=== PATIENT | male | born 1985 | race Caucasian/White ===

== ENCOUNTER → 2020-03-28 17:45 | Outpatient (CLI) | payer OTHER, SELFPAY ==
--- NOTE | 2020-03-28 17:48 | DI.MRI.S_ITS ---
PROCEDURE: MR LUMBAR SPINE WO/W CON INDICATIONS: PAIN IN RIGHT LOWER LEG TECHNIQUE: Noncontrast sagittal T1 spin echo and T2 fast spin echo, sagittal STIR, axial T1 and T2 fast spin echo through the lumbar spine. In cases with scoliosis, additional coronal T2 fast spin echo may be performed. After the administration of contrast, sagittal and axial T1 spin echo with fat saturation through the lumbar spine. COMPARISON: None. FINDINGS: Image quality: Excellent. Alignment and curvature: There is normal bony alignment. Bones: Transitional anatomy with left dianne-lumbarization of the S1 vertebral body and non-rudimentary S1-2 disc noted. Marrow is of normal overall signal. No acute vertebral body compression fractures. No suspicious marrow enhancement. Spinal cord: Conus medullaris terminates at the L2 level. Visualized spinal cord demonstrates normal signal, without suspicious enhancement. Paraspinous soft tissues: No paravertebral masses or abnormal enhancement. L1-L2: Normal appearance. L2-L3: Normal appearance. L3-L4: Normal appearance. L4-L5: Normal appearance. L5-S1: Slight loss of disc signal. Minimal, diffuse disc bulge. Mild bilateral facet hypertrophy. No central stenosis. Mild bilateral neural foraminal narrowing. No neural compression. S1-S2: Normal appearance. IMPRESSION: 1. 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 2. Minimal L5-S1 degenerative disc disease. 3. Mild L5-S1 facet arthropathy. 4. No central stenosis. 5. Mild bilateral L5-S1 neural foraminal narrowing. 6. No neural compression. 7. No suspicious postcontrast enhancement. Dictated by: Arlette Reyes MD, PhD on 03/29/2020 at 7:22 Approved by: Arlette Reyes MD, PhD on 04/01/2020 at 17:09
== END ==
PROVIDERS: Referring Provider Internal Medicine; Visit Provider Internal Medicine
DX: M79.661 Pain in right lower leg (principal); Q76.49 Other congenital malformations of spine, not associated with scoliosis; M47.817 Spondylosis without myelopathy or radiculopathy, lumbosacral region; M48.07 Spinal stenosis, lumbosacral region
CPT/HCPCS: 72158; A9579

== ENCOUNTER → 2021-05-16 14:47 | Outpatient (CLI) | payer OTHER, SELFPAY ==
--- NOTE | 2021-05-16 | DI.ECHO.S_ITS ---
[facility] +---------+ : : [address] [place] : : : : [id number] : : : : Phone: [phone]+ Echocardiogram Report + + :Name: JACQUES MONSIVAIS Study Date: 05/16/2021 Height: 67 in : :[facility] ReadingLocation: Weight: 205 lb : : Gender: Male BSA: 2.0 m2 : :: 1985 Age: 36 yrs BP: 123/71 mmHg: :Reason For Study: Cardiomyopathy, Ischemic : :Ordering Physician: JANIA, : :REAGAN Performed By: Nando Velez : :Referring: REAGAN DYKES : + + Interpretation Summary Normal sinus rhythm The left ventricle is normal in size and wall thickness. Left ventricular systolic function is mildly reduced. The ejection fraction is estimated to be 45-50%. LVEF has mildly reduced. 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 Otherwise normal wall motion. Diastolic parameters suggest probable normal left ventricular diastolic function and normal filling pressures. The right ventricle is normal in size and function. The right ventricular systolic pressure is estimated to be at least 25 mmHg based on an estimated right atrial pressure of 3 mm Hg. Both atria are normal in size. There is no significant valvular heart disease. The aortic root is normal size. Compared to prior study no changes have occurred. Procedure: A two-dimensional transthoracic echocardiogram with color flow and Doppler was performed. The study quality was technically adequate. Comparison is made with the echocardiogram of 12/12/2020. The patient was in sinus rhythm with heart rates between 64-77 bpm during the exam. Left Ventricle: The left ventricle is normal in size and wall thickness. Left ventricular systolic function is mildly reduced. The ejection fraction is estimated to be 45-50%. There is apical hypokinesis. There is apical septal wall hypokinesis. There is apical inferior wall hypokinesis. There is apical anterior wall hypokinesis. There is mid anterior wall hypokinesis. There is mid anteroseptal wall hypokinesis. Diastolic parameters suggest a relaxation abnormality of the left ventricle, consistent with probable normal filling pressures. Right Ventricle: The right ventricle is normal in size and function. Atria: Both atria are normal in size. There is no Doppler evidence for an interatrial shunt. Mitral Valve: The mitral valve is normal in structure and function. There is no mitral regurgitation noted. Aortic Valve: The aortic valve is normal in structure and function. No aortic regurgitation is present. Tricuspid Valve: The tricuspid valve is normal in structure and function. There is a trace or physiologic amount of tricuspid regurgitation. Pulmonary artery pressures cannot be estimated because of the lack of a measurable TR jet velocity but the IVC suggests a CVP of around 3 mmHg. Pulmonic Valve: The pulmonic valve is normal in structure and function. There is mild pulmonic regurgitation. Great Vessels: The aortic root is normal size. The dimensions of the ascending aorta are normal. The IVC is of normal diameter and collapses greater than 50% with a sniff. This suggests a low right atrial pressure of 3 mm Hg. Pericardium/ Pleura There is no pericardial effusion. There is no pleural effusion. MMode/2D Measurements & Calculations LVIDd: 5.1 cm LVOT diam: 2.1 cm LVIDs: 3.6 cm Ao root diam: 3.2 cm FS: 29.1 % asc Aorta Diam: 2.5 cm IVSd: 0.77 cm LVPWd: 0.87 cm LV crump. diameter/BSA (cm/m^2): 2.5 LV sys. diameter/BSA (cm/m^2): 1.8 LA A2 area: 13.3 cm2 RA long axis: 4.3 cm LA A4 area: 11.8 cm2 RA area: 10.7 cm2 LA length (vol): 4.9 cm RA vol: 22.3 ml LA vol: 27.5 ml RA : 10.9 ml/m2 LA vol index: 13.5 ml/m2 TAPSE: 1.7 cm Doppler Measurements & Calculations Ao V2 max: 104.0 cm/sec LVOT Max Moshe: 91.8 cm/sec Ao V2 mean: 76.0 cm/sec LV V1 max P.4 mmHg Ao max P.3 mmHg LV V1 VTI: 17.3 cm Ao mean P.6 mmHg SCOTTY(I,D): 3.3 cm2 Ao V2 VTI: 18.4 cm SCOTTY(V,D): 3.1 cm2 sev ratio: 0.94 SCOTTY indexed to BSA (cm^2/m^2): 1.6 MV E max moshe: 45.3 cm/sec PA pr(Accel): 27.6 mmHg MV A max moshe: 64.8 cm/sec MV E/A: 0.70 Med Peak E' Moshe: 9.1 cm/sec E/E' med: 5.0 Lat Peak E' Moshe: 11.0 cm/sec E/E' lat: 4.1 E/e' average: 4.5 MV dec time: 0.35 sec SV(LVOT): 61.0 ml Electronically signed by: Laura Gonzalez M.D. on Reading Physician:05/19/2021 01:34 PM
== END ==
PROVIDERS: Referring Provider Nurse Practitioner Family; Visit Provider Nurse Practitioner Family
DX: I37.1 Nonrheumatic pulmonary valve insufficiency (principal)
CPT/HCPCS: 93306